=== PATIENT | female | born 1995 | race African-American/Black ===

== ENCOUNTER 2021-07-11 16:02 | Outpatient (CLI) | payer BC ==
[2021-07-12 11:15] LABS: SARS-CoV-2 PCR by NAA Not Detected (NotDetected)
== END 2021-07-11 16:03 | disposition home or self-care (01) ==
LOC: CSHLAB 16:02
PROVIDERS: ATTEND Internal Medicine Gastroenterology
DX: Z20.822 Contact with and (suspected) exposure to COVID-19 (principal); R10.9 Unspecified abdominal pain; R11.0 Nausea
CPT/HCPCS: U0003; U0005